=== PATIENT | female | born 1965 | race Caucasian/White ===

== ENCOUNTER 2017-09-12 18:09 | Emergency (ER) | payer OTHER, MEDICAID ==
[2017-09-12 19:07] LABS: ADD MAN DIFF? NO
[2017-09-12 19:13] LABS: WHITE BLOOD COUNT 6.3 10^3/ul (4.8-10.8)
[2017-09-12 19:13] LABS: BASOPHILS % 0.3 % (0.0-2.0); EOSINOPHILS # 0.1 10^3/ul (0.0-0.5); EOSINOPHILS % 1.7 % (0.0-7.0); HEMATOCRIT 38.7 % (37.0-47.0); HEMOGLOBIN 12.9 g/dl (12.0-16.0); LYMPHOCYTES # 2.3 10^3/ul (0.8-2.9); LYMPHOCYTES % 35.8 % (15.0-51.0); MEAN CORPUSCULAR HEMOGLOBIN 23.9 pg (29.0-33.0); MEAN CORPUSCULAR HGB CONC 33.3 g/dl (32.0-37.0); MEAN CORPUSCULAR VOLUME 71.7 fl (82.0-101.0); MEAN PLATELET VOLUME 10.4 fl (7.4-10.4); MONOCYTE # 0.3 10^3/ul (0.3-0.9); MONOCYTES % 5.1 % (0.0-11.0); NEUTROPHIL # 3.6 10^3/ul (1.6-7.5); NEUTROPHILS % 56.8 % (39.0-77.0); PLATELET COUNT 334 10^3/UL (140-415); RED CELL DISTRIBUTION WIDTH 13.7 % (11.5-14.5)
[2017-09-12 19:27] LABS: ANION GAP 19 (8-16); BLOOD UREA NITROGEN 13 mg/dl (7-20); CALCIUM 9.4 mg/dl (8.4-10.2); CARBON DIOXIDE 26 mmol/L (21-31); CHLORIDE 98 mmol/L (97-110); CREATININE 0.61 mg/dl (0.44-1.00); GLUCOSE 332 mg/dl (70-220); POTASSIUM 3.9 mmol/L (3.5-5.1); SODIUM 139 mmol/L (135-144)
[2017-09-12 19:32] LABS: INR 0.93; PROTIME 12.5 Sec (11.9-14.9)
[2017-09-12 19:33] LABS: PARTIAL THROMBOPLASTIN TIME 28.6 Sec (25.0-35.0)
== END 2017-09-12 21:36 | disposition home or self-care (01) ==
LOC: E/R 18:09
DX: I10 Essential (primary) hypertension (principal); E11.9 Type 2 diabetes mellitus without complications; R10.2 Pelvic and perineal pain; Z79.84 Long term (current) use of oral hypoglycemic drugs
CPT/HCPCS: 36415; 70450; 80048; 85025; 85610; 85730; 99284-25